=== PATIENT | female | born 1965 | race Caucasian/White ===

== ENCOUNTER → 2022-12-22 14:24 | Outpatient (BNVA) | payer MEDICAID, SELFPAY | PROVIDERS: Visit Provider Surgery | DX: Z12.11 Encounter for screening for malignant neoplasm of colon (principal); Z80.0 Family history of malignant neoplasm of digestive organs; K21.9 Gastro-esophageal reflux disease without esophagitis | CPT/HCPCS: 99024; 99203 ==

== ENCOUNTER → 2023-02-19 10:57 | Outpatient (BNVA) | payer OTHER, SELFPAY | PROVIDERS: Visit Provider Family Medicine | DX: I10 Essential (primary) hypertension (principal); F32.0 Major depressive disorder, single episode, mild; M25.512 Pain in left shoulder | CPT/HCPCS: 80053; 80061; 84439; 84443; 85025 ==

== ENCOUNTER 2023-02-26 07:12 | Day surgery (SDC) | payer OTHER, MEDICAID, SELFPAY ==
[2023-02-01 14:00] VITALS: BMI 25.6
[2023-02-26 07:26] VITALS: PULSE 96; RESP 16; TEMP 36.1; O2SAT 98
--- NOTE | 2023-02-26 07:29 | P.ANESASSM_ITS ---
Pre-Anesthetic Assessment Height/Weight: Height 1.5 m Weight 57.606 kg Preop Diagnosis: GERD, screening Operation Date: 02/26/23 08:30 Proposed Procedures p 51122 EGD [id number] Colonoscopy K21.9,Z12.11(Not Applicable) - Tyrone Moscoso DO s Colonoscopy(Not Applicable) - Tyrone Moscoso DO Familial anesthetic complications: none Was Beta Deanna taken within 24 hours: N/A Was Clonidine taken within 24 hours: N/A Social Tobacco and No alcohol 1 pack(s) per day 44 pack years Exam alert, oriented x 3, clear to auscultation bilaterally and regular rate & rhythm Airway Submandibular: within normal limits Cervical ROM: within normal limits Mallampati: Class I Dentition: false Pulmonary Chronic Obstructive Pulmonary Disease, Exertional Dyspnea and Sleep Apnea CV/HEM Hypertension None reported Hepatic None reported GI Gastroesophageal Reflux Disease (controlled) Metabolic Hyperlipidemia [facility] None reported Neuropsych None reported Anesthetic Plan ASA status: 3 Anesthesia: MAC Risk of > 500 ml blood loss (7ml/kg in children): No Medications/Allergies Home Medications Medication Instructions Recorded Confirmed Last Taken Type pantoprazole 40 mg tablet,delayed 40 mg PO BID 6 weeks #84 tabs 12/22/22 02/26/23 02/25/23 Rx release (Protonix) benazepril 20 mg tablet 20 mg PO DAILY #90 tabs 02/19/23 02/26/23 02/25/23 Rx sertraline 25 mg tablet (Zoloft) 25 mg PO DAILY #30 tabs 02/19/23 02/26/23 02/25/23 Rx acetaminophen 500 mg tablet 500 mg PO Q6H PRN Pain 02/24/23 02/26/23 02/25/23 History Allergies Allergy/AdvReac Type Severity Reaction Status Date / Time No Known Allergies Allergy Verified 02/24/23 09:40 [facility] Anesthesia Medical History (Updated 02/21/23 @ 08:06 by Deondre Coello MD) Family history of colon cancer Surgical History (Updated 12/22/22 @ 15:41 by Tyrone Moscoso DO) Hx of colonoscopy with polypectomy Age 49 Hx of shoulder surgery left shoulder Family History Mother Cancer mass in colon breast cancer, lung cancer, skin cancer Other CAD (coronary artery disease) Social History Smoking and tobacco/nicotine status: current every day tobacco/nicotine user cigarettes Alcohol intake: current Alcohol intake frequency: holidays/special occasions only Data Anesthesia Cardiac Studies: No Data to Display
[2023-02-26] MEDS: sodium chloride 0.9% 1,000 ML 30 ML IV (07:37)
--- NOTE | 2023-02-26 08:15 | P.HP_ITS ---
Providers/Chief Complaint Primary Care Provider: Deondre Coello MD Chief Complaint: K21.9, Z12.11 History of Present Illness Cara Woods is a 57 year old female Review of Systems 2 General: Reports: 10 or more systems reviewed and unremarkable except in HPI and below Medications/Allergies Home Medications Medication Instructions Recorded Confirmed Last Taken Type pantoprazole 40 mg tablet,delayed 40 mg PO BID 6 weeks #84 tabs 12/22/22 02/26/23 02/25/23 Rx release (Protonix) benazepril 20 mg tablet 20 mg PO DAILY #90 tabs 02/19/23 02/26/23 02/25/23 Rx sertraline 25 mg tablet (Zoloft) 25 mg PO DAILY #30 tabs 02/19/23 02/26/23 02/25/23 Rx acetaminophen 500 mg tablet 500 mg PO Q6H PRN Pain 02/24/23 02/26/23 02/25/23 History Allergies Allergy/AdvReac Type Severity Reaction Status Date / Time No Known Allergies Allergy Verified 02/24/23 09:40 PFSH Acute PFSH: Medical History Family history of colon cancer Surgical History Hx of colonoscopy with polypectomy Age 49 Hx of shoulder surgery left shoulder Family History Mother Cancer mass in colon breast cancer, lung cancer, skin cancer Other CAD (coronary artery disease) Social History Smoking and tobacco/nicotine status: current every day tobacco/nicotine user cigarettes Alcohol intake: current Alcohol intake frequency: holidays/special occasions only Vitals/I&O/Wt Last Vital Signs Temp 97 F L 02/26/23 07:26 Pulse 96 02/26/23 07:26 Resp 16 02/26/23 07:26 Pulse Ox 98 02/26/23 07:26 O2 Del Method Room Air 02/26/23 07:26 A&P Assessment and plan (1) GERD (gastroesophageal reflux disease): (2) Colon cancer screening: Plan EGD and colonoscopy Attestations Medical Necessity Statement*: Home Coding Level of Care Code Acute Code for Chg Fwd Diagnoses GERD (gastroesophageal reflux disease) K21.9 Colon cancer screening Z12.11
[2023-02-26 08:51] VITALS: BP 107/70; PULSE 100; RESP 20; TEMP 36.1; O2SAT 100
--- NOTE | 2023-02-26 13:49 | ANE.PACU2 ---
Inpatient post-anesthesia follow up: Airway intact: Yes Vital signs: Temperature 97.0 F Pulse Rate 100 Respiratory Rate 20 Blood Pressure 107/70 Pulse Oximetry 100 Oxygen Delivery Me thod Nasal Cannula Oxygen Flow Rate 4 Fraction of Inspir ed Oxygen Hydration adequate: Yes Nausea and vomiting: No Pain level: 2 Mental status: Baseline
== END 2023-02-26 09:10 | disposition home or self-care (01) ==
PROVIDERS: PCP Family Medicine; Visit Provider Surgery
PROC: 0DJ08ZZ Inspection of Upper Intestinal Tract, Via Natural or Artificial Opening Endoscopic (ICD-10-PCS; CPT 43235; principal; 2023-02-26 08:30)
PROC: 0DJD8ZZ Inspection of Lower Intestinal Tract, Via Natural or Artificial Opening Endoscopic (ICD-10-PCS; CPT 45378; 2023-02-26 08:30)
DX: Z12.11 Encounter for screening for malignant neoplasm of colon (principal); K21.9 Gastro-esophageal reflux disease without esophagitis; Z80.0 Family history of malignant neoplasm of digestive organs; K29.50 Unspecified chronic gastritis without bleeding; F17.210 Nicotine dependence, cigarettes, uncomplicated; K29.80 Duodenitis without bleeding; J44.9 Chronic obstructive pulmonary disease, unspecified; G47.30 Sleep apnea, unspecified; I10 Essential (primary) hypertension
CPT/HCPCS: 43239; 45378; 88305; 88342; J2704; J7030

== ENCOUNTER 2023-06-01 08:43 | Outpatient (CLI) | payer OTHER, MEDICAID, SELFPAY ==
--- NOTE | 2023-06-01 08:49 | MM_ITS ---
WS: [id number] BILATERAL 3D TOMOSYNTHESIS DIGITAL SCREENING MAMMOGRAPHY WITH CAD CLINICAL INFORMATION: screening HISTORY: Screening mammogram. No current complaints. COMPARISON: 2016 TECHNIQUE: Bilateral CC and MLO views. FINDINGS: Scattered fibroglandular densities bilaterally. No suspicious focal mass, asymmetry, calcifications, or architectural distortion. No evidence of malignancy. A few incidental punctate calcifications. IMPRESSION: MM/[place] [id number] BI-RADS: 2-Benign FOLLOW UP: 1 Year Follow-up Recommend return to annual screening mammography.
== END 2023-06-01 08:44 | disposition home or self-care (01) ==
LOC: RAD 08:44
PROVIDERS: PCP Family Medicine; Visit Provider Family Medicine
DX: Z12.31 Encounter for screening mammogram for malignant neoplasm of breast (principal)
CPT/HCPCS: 77063; 77067

== ENCOUNTER 2023-08-20 06:33 | Outpatient (CLI) | payer OTHER, MEDICAID, SELFPAY ==
--- NOTE | 2023-08-20 07:00 | CT_ITS ---
WS: [id number] LDCT LUNG CANCER SCREENING HISTORY: smoking lung [place] screening TECHNIQUE: Axial imaging performed from the apices to 1 cm below the costophrenic angles. Coronal and sagittal reformats are submitted with axial MIP series. All CT scans at [facility] use at least one of these dose optimization techniques: automated exposure control; mA and/or kV adjustment per patient size (includes targeted exams where dose is matched to clinical indication); or iterativ e reconstruction. DLP: 43.32 mGy.cm DIvol: Mean CTDIvol: 0.80 (mGy) COMPARISON: None available. Diagnostic quality: Satisfactory Lungs: Chronic emphysema. Pulmonary hyperinflation. Micronodule LEFT lung base, image 172 series 5. M ild biapical interstitial thickening and tethering. No masses. No endobronchial lesions. Heart: Normal size heart with no pericardial effusion.. Coronary artery atherosclerosis most signific ant in the LAD. Other findings: Mild atherosclerosis aorta. Normal size pulmonary artery. IMPRESSION: CT/CT lung screening [id number] LUNG-RADS: 2-Benign Appearance or Behavior FOLLOW UP: 12 Month: Continue annual screening with LDCT OTHER FINDINGS (S MODIFIER): None.
== END 2023-08-20 06:34 | disposition home or self-care (01) ==
LOC: RAD 06:33
PROVIDERS: PCP Family Medicine; Visit Provider Family Medicine
DX: Z13.83 Encounter for screening for respiratory disorder NEC (principal); J43.9 Emphysema, unspecified; R91.1 Solitary pulmonary nodule; F17.219 Nicotine dependence, cigarettes, with unspecified nicotine-induced disorders
CPT/HCPCS: 71271

== ENCOUNTER 2023-11-29 10:02 | Emergency (ER) | payer OTHER, SELFPAY ==
[2023-11-29 10:50] VITALS: BP 136/83; PULSE 101; RESP 16; TEMP 36.8; O2SAT 97; BMI 26.2
--- NOTE | 2023-11-29 12:24 | W.ED.SKABFB ---
HPI - Skin/Abscess/Foreign Bdy General: Chief complaint: Skin/Abscess/Foreign Body Stated complaint: insect (?) bite, swelling Time Seen by Provider: 11/29/23 12:11 Source: patient Mode of arrival: ambulatory Limitations: no limitations History of Present Illness: 58-year-old female states that she woke up this morning had a slight rash to her left forearm. States has been pruritic in nature she believes she may have gotten a bug bite she denies any shortness of breath denies any fever denies any pain. She denies any improving or worsening factors Associated symptoms: Deny chills, fever(s), nausea or vomiting Review of Systems Const: Denies: fever(s), chills, body aches or change in appetite ENMT: Denies: throat pain or dental pain Card: Denies: chest pain Resp: Denies: dyspnea GI: Denies: abdominal pain, nausea, vomiting or diarrhea Musc: Denies: neck pain or back pain Skin/Breast: Reports: rash Neuro: Denies: headache(s) PFSH ED PFSH: Medical History Family history of colon cancer Surgical History Hx of colonoscopy with polypectomy Age 49 Hx of shoulder surgery left shoulder Family History Mother Cancer mass in colon breast cancer, lung cancer, skin cancer Other CAD (coronary artery disease) Social History Smoking and tobacco/nicotine status: current every day tobacco/nicotine user cigarettes Packs smoked per day: 1 Quit status (tobacco/nicotine): considering quitting Alcohol intake: current Alcohol intake frequency: holidays/special occasions only Substance/Drug Use: never Adopted: No service: No Current occupation: Computer Science Intern Current occupational exposures/hazards: Yes Current gender identity: Female Physical Exam Const: COMMON NORMALS: no acute distress, patient oriented x3 and healthy appearing HENMT: COMMON NORMALS: normocephalic and atraumatic HEAD & SCALP: normocephalic and atraumatic Neck/C-Spine: COMMON NORMALS: full ROM and supple Chest: COMMONS NORMALS: normal inspection of the chest Resp: COMMON NORMALS: normal respiratory effort Cardio: COMMON NORMALS: regular rate RATE: regular rate Extremity: COMMON NORMALS: normal to inspection and full ROM Neuro: COMMON NORMALS: patient oriented x3, moves all extremities and no focal motor deficits Psych: COMMON NORMALS: mental status grossly normal, Normal thought process present and cooperative THOUGHT PROCESS: Normal thought process present Skin: NARRATIVE SKIN EXAM: Slight rash noted to left forearm is pruritic in nature no warmth Course Vital Signs: Vital signs: Vital Signs Temperature 98.2 F 11/29/23 10:50 Pulse Rate 101 H 11/29/23 10:50 Respiratory Rate 16 11/29/23 10:50 Blood Pressure 136/83 11/29/23 10:50 Pulse Oximetry 97 11/29/23 10:50 Oxygen Delivery Me thod Room Air 11/29/23 10:50 MDM - Skin/Abscess/Foreign Bdy Medicial Decision Making Patient presents here with a rash likely an insect bite her white count platelet count were normal she is to take Benadryl at home she is stable for discharge follow-up PCP return if worsening. Medical Records I reviewed the patient's medical records. Lab Data I reviewed the patient's lab results. 11/29/23 12:47 Laboratory Results WBC 7.83 10^3/uL (3.29-11.43) 11/29/23 12:47 RBC 4.36 10^6/uL (3.85-5.65) 11/29/23 12:47 Hgb 11.90 g/dL (11.27-16.99) 11/29/23 12:47 Hct 38.2 % (36-47) 11/29/23 12:47 MCV 87.6 fl (85-98) 11/29/23 12:47 MCH 27.3 pg (27-33) 11/29/23 12:47 MCHC 31.2 g/dL (30-55) 11/29/23 12:47 RDW 14.2 % (12.1-15.1) 11/29/23 12:47 Plt Count 242 10^3/cmm (157-399) 11/29/23 12:47 MPV 11.2 fL (7.4-10.4) H 11/29/23 12:47 Neut % (Auto) 59.6 % 11/29/23 12:47 Lymph % (Auto) 28.7 % 11/29/23 12:47 Irwin % (Auto) 7.2 % 11/29/23 12:47 Eos % (Auto) 3.2 % 11/29/23 12:47 Baso % (Auto) 1.0 % 11/29/23 12:47 Neut # (Auto) 4.67 10^3/uL (1.8-7.7) 11/29/23 12:47 Lymph # (Auto) 2.3 10^3/uL (0.8-4.8) 11/29/23 12:47 Irwin # (Auto) 0.6 10^3/uL (0.2-0.9) 11/29/23 12:47 Eos # (Auto) 0.3 10^3/uL (0.0-0.8) 11/29/23 12:47 Baso # (Auto) 0.1 10^3/uL (0.0-0.1) 11/29/23 12:47 Nucleated RBC % (auto) 0 % 11/29/23 12:47 Nucleated RBCs # 0.0 /100WBC 11/29/23 12:47 No radiology studies performed this visit Discharge Plan Discharge Patient Disposition: Home Clinical Impression: Rash Condition: Stable Prescriptions: No Action pantoprazole [Protonix] 40 mg tablet,delayed release (DR/EC) 40 mg PO DAILY 90 Days Qty: 90 1RF benazepril 20 mg tablet 20 mg PO DAILY Qty: 90 1RF cetirizine [Zyrtec] 10 mg tablet 10 mg PO DAILY PRN (Reason: allergy symptoms) Qty: 30 0RF albuterol sulfate 90 mcg/actuation HFA aerosol inhaler 1 inh inhalation QID PRN (Reason: shortness of breath or wheezing) Qty: 6.7 0RF sertraline 100 mg tablet 100 mg PO DAILY Qty: 30 0RF acetaminophen 500 mg Tablet 500 mg PO Q6H PRN (Reason: Pain) Discharge Orders: Discharge ED (Routine); Ordered 11/29/23 Ordered By: Reina Martinez Referrals: Deondre Coello MD [Primary Care Provider] - 1-3 days Discharge Diet: Advance as tolerated Discharge Activity: Resume usual activity Patient Instructions: Rash - Nonspecific Coding Level of Care Code ED Wind Farm Operations Manager for Helio Duggan
[2023-11-29] MEDS: diphenhydrAMINE 50 mg Capsule PO (12:26)
[2023-11-29 13:18] LABS: Basophils # 0.1 10^3/uL (0.0-0.1); Eosinophils # 0.3 10^3/uL (0.0-0.8); Eosinophils % 3.2 %; Hematocrit 38.2 % (36-47); Lymphocytes # 2.3 10^3/uL (0.8-4.8); Lymphocytes % 28.7 %; Mean Corpuscular HGB Conc 31.2 g/dL (30-55); Mean Corpuscular Hemoglobin 27.3 pg (27-33); Mean Corpuscular Volume 87.6 fl (85-98); Mean Platelet Volume 11.2 fL (7.4-10.4); Monocytes # 0.6 10^3/uL (0.2-0.9); Monocytes % 7.2 %; Neutrophils # 4.67 10^3/uL (1.8-7.7); Neutrophils % 59.6 %; Nucleated Red Blood Cells % 0 %; Platelet Count 242 10^3/cmm (157-399); Red Blood Count 4.36 10^6/uL (3.85-5.65); Red Cell Distribution Width 14.2 % (12.1-15.1); White Blood Count 7.83 10^3/uL (3.29-11.43)
[2023-11-29 13:27] VITALS: BP 113/69; PULSE 93; RESP 16; O2SAT 97
[2023-11-29 13:28] VITALS: BP 113/69; PULSE 93; RESP 16; TEMP 36.8; O2SAT 97
== END 2023-11-29 13:31 | disposition home or self-care (01) ==
PROVIDERS: Emergency Provider Emergency Medicine; PCP Family Medicine
DX: R21 Rash and other nonspecific skin eruption (principal); F17.210 Nicotine dependence, cigarettes, uncomplicated
CPT/HCPCS: 36415; 85025; 99283; Q0163

== ENCOUNTER → 2024-07-25 09:01 | Outpatient (BNVA) | payer OTHER, SELFPAY | PROVIDERS: PCP Family Medicine; Visit Provider Orthopaedic Surgery | DX: S52.502A Unspecified fracture of the lower end of left radius, initial encounter for closed fracture (principal); S52.592A Other fractures of lower end of left radius, initial encounter for closed fracture; W00.0XXA Fall on same level due to ice and snow, initial encounter | CPT/HCPCS: 73110 ==

== ENCOUNTER → 2024-08-15 08:56 | Outpatient (BNVA) | payer OTHER, SELFPAY | PROVIDERS: PCP Family Medicine; Visit Provider Orthopaedic Surgery | DX: S62.102D Fracture of unspecified carpal bone, left wrist, subsequent encounter for fracture with routine healing (principal); X58.XXXD Exposure to other specified factors, subsequent encounter | CPT/HCPCS: 73110 ==

== ENCOUNTER 2024-09-05 13:17 | Outpatient (CLI) | payer OTHER, SELFPAY ==
--- NOTE | 2024-09-05 13:20 | MM_ITS ---
WS: [id number] VIEWS: MLO and CC views both breasts. 3D digital tomosynthesis is also included in this exam. Comparison made with prior exam of 07/03/2015, 06/19/2013, 06/01/2023.. Findings: There are scattered areas of fibroglandular density. No sign of suspicious mass, tumor calcification or architectural distortion. MM/MM scr BI tomosynthesis [id number] Impression: BI-RADS: 2 - Benign FOLLOW-UP: 1 Year Follow-up This mammogram was also analyzed by the Computer Aided Detection System R2 Imag e Hat Liner.
== END 2024-09-05 13:18 | disposition home or self-care (01) ==
PROVIDERS: PCP Family Medicine; Visit Provider Family Medicine
DX: Z12.31 Encounter for screening mammogram for malignant neoplasm of breast (principal); R92.323 Mammographic fibroglandular density, bilateral breasts
CPT/HCPCS: 77063; 77067

== ENCOUNTER → 2024-10-18 09:07 | Outpatient (BNVA) | payer OTHER, SELFPAY | PROVIDERS: PCP Family Medicine; Visit Provider Family Medicine | DX: I10 Essential (primary) hypertension (principal) | CPT/HCPCS: 80053; 80061; 84439; 84443; 85025 ==

== ENCOUNTER 2024-10-31 16:15 | Outpatient (CLI) | payer OTHER, SELFPAY ==
--- NOTE | 2024-10-31 16:15 | CT_ITS ---
WS: [id number] LDCT LUNG CANCER SCREENING HISTORY: screening TECHNIQUE: Axial imaging performed from the apices to 1 cm below the costophrenic angles. Coronal and sagittal reformats are submitted with axial MIP series. All CT scans at [facility] use at least one of these dose optimization techniques: automated exposure control; mA and/or kV adjustment per patient size (includes targeted exams where dose is matched to clinical indication); or iterative reconstruction. DLP: 45.90 mGy.cm DIvol: Mean CTDIvol: 0.90 (mGy) COMPARISON: 08/20/2023 Diagnostic quality: Satisfactory Lungs: Chronic emphysema. Very mild interstitial thickening in the periphery of the upper lung tobias. Scattered benign calcified granulomata. Micronodule LEFT lower lobe is now calcified. No new nodules or increasing size of any nodules. No mass. No endobronchial lesions. Heart: Normal size heart with no pericardial effusion.. Other findings: Mild atherosclerosis aorta. Normal size pulmonary artery. No pathologically enlarged lymph nodes. No adrenal mass. Mild thoracic spondylosis. CT/CT lung screening [id number] IMPRESSION: LUNG-RADS: 2-Benign Appearance or Behavior FOLLOW UP: 12 Month: Continue annual screening with LDCT OTHER FINDINGS (S MODIFIER): None.
== END 2024-10-31 16:16 | disposition home or self-care (01) ==
PROVIDERS: PCP Family Medicine; Visit Provider Family Medicine
DX: Z12.2 Encounter for screening for malignant neoplasm of respiratory organs (principal); F17.219 Nicotine dependence, cigarettes, with unspecified nicotine-induced disorders
CPT/HCPCS: 71271

== ENCOUNTER 2025-04-13 09:56 | Emergency (ER) | payer SELFPAY ==
--- OUTSIDE RECORDS SUMMARY | 2013-10-15 18:00 | XMS_ITS | Continuity of Care Document ---
Author Organization [facility] MD In [facility] Address [address] [place] [address] Phone Care Team Providers Care Hand Paint Mixer Name Role Phone Estefany AWAD, Lele Unavailable Unavai lable Procedures Procedure Date Electrocardiogram (ECG), report only Oct Advance Directives Directive Yes / No Effective Date File Name No Information Encounters Encounter Description Practice Location Reason(s) For Visit Diagnoses Date Provider Providers Copied on Encounter [facility], [address], [place], [address], tel:[phone] [facility] No Information Estefany Royal . [address] [place], [place], [id number]. tel:[phone] Referring Provider: Nahid Gaona, [address] [place], [address]. tel:[phone] Family History Family Member Type Diagnosis Age At Onset No Information Payers Payer name Insurance type Covered constitution party ID Authoriza tijacobo(s) [facility] [id number] Social History Type Description Quantity Date Captured Comments Sex Female Smoking Status No Information Chief Complaint And Reason For Visit No Information Reason For Referral Reason For Referral No Information History Of Present Illness Encounter Date Complaint History Of Prese nt Illness No Information Functional Status Date Functional Assessmen t No Information Instructions Date Instruction Additional Infor mation No Information Assessments Type Assessment Date No Information Patient Care Teams Name Effective Dates (start - stop) Status Members No Information
--- OUTSIDE RECORDS SUMMARY | 2025-04-13 10:00 | XMS_ITS | Continuity of Care Document ---
Author Name Zandra Smart Address [address] [place] [id number] Organization Unknown Address [address] [place] [id number] Medications No known medications Problems * Encounter for gynecological examination (general) (routine) without abnormal findings on: 2022-03-12
[2025-04-13 10:12] VITALS: BP 162/91; PULSE 101; RESP 18; TEMP 36.7; O2SAT 98; BMI 26.6
--- NOTE | 2025-04-13 10:13 | W.ED.ANIMALB ---
HPI - Animal Bite General: Chief Complaint: Animal Bite Stated Complaint: Dog Bite L leg Time Seen by Provider: 04/13/25 10:13 Source: patient Mode of arrival: ambulatory Limitations: no limitations History of Present Illness: Patient is a nice 59-year-old female presents to ED today with a complaint of a dog bite to the posterior aspect of her left lower leg that she sustained yesterday. She states the animal was her friend's dog and is just naturally aggressive. She is not sure if the dog is up-to-date on rabies immunizations but can ask her friend. She states the dog can be quarantined. She states her tetanus is not up-to-date. She feels like the dog bite feels sore has not noticed any swelling, redness, or discharge. complaint: animal bite Onset (ago): day(s) (yesterday) Animal: dog Description of animal: appeared well Mechanism: bite Location - Extremities: Left: lower leg Context: provoked Associated symptoms: Reports no associated symptoms; Deny chills or fever(s) Related Data Home Medications ?Medication ?Instructions ?Recorded ?Confirmed acetaminophen 500 mg tablet 500 mg PO Q6H PRN Pain 02/24/23 10/18/24 Previous Rx's ?Medication ?Instructions ?Recorded albuterol sulfate 90 mcg/actuation 1 inh inhalation QID PRN shortness 08/18/23 aerosol inhaler of breath or wheezing #6.7 grams benazepril 20 mg tablet 20 mg PO DAILY #90 tabs 10/18/24 omeprazole 20 mg capsule,delayed 20 mg PO DAILY #90 caps 10/18/24 release ibuprofen 800 mg tablet 800 mg PO Q8H PRN pain (scale 11/20/24 score 7-10) #15 tabs amoxicillin 875 mg-potassium 1 tab PO BID #14 tabs 04/13/25 clavulanate 125 mg tablet Allergies Allergy/AdvReac Type Severity Reaction Status Date / Time No Known Allergies Allergy Verified 07/25/24 09:18 Review of Systems Const: Denies: fever(s), chills, body aches, fatigue or malaise Card: Denies: chest pain Resp: Denies: dyspnea GI: Denies: abdominal pain, nausea or vomiting Musc: Reports: extremity pain (L LE at site of dog bite); Denies: neck pain, back pain, extremity swelling or joint pain Skin/Breast: Reports: other (dog bite L lower leg) Neuro: Denies: numbness in extremities, weakness in extremities, sensory changes or difficulty walking PFSH ED PFSH: Medical History Family history of colon cancer Surgical History Hx of colonoscopy with polypectomy Age 49 Hx of shoulder surgery left shoulder Family History Mother Cancer mass in colon breast cancer, lung cancer, skin cancer Other CAD (coronary artery disease) Social History Smoking and tobacco/nicotine status: current every day tobacco/nicotine user cigarettes Packs smoked per day: 1 Quit status (tobacco/nicotine): considering quitting Alcohol intake: current Alcohol intake frequency: holidays/special occasions only Substance/Drug Use: never Adopted: No service: No Current occupation: Armament Repairer Current occupational exposures/hazards: Yes Current gender identity: Female Physical Exam Const: COMMON NORMALS: no acute distress, average body habitus, no limitations, healthy appearing, alert and well nourished Extremity: COMMON NORMALS: no clubbing, cyanosis or edema and no pedal edema GENERAL: Yes normal exam except as noted LEFT LOWER EXTREMITY: Yes lower leg (small dog bite L calf-no edema, redness, streaking, discharge) Left lower leg: Yes neurovascular exam (normal) Neuro: COMMON NORMALS: moves all extremities, no focal motor deficits, no sensory deficits noted and gait normal SENSORIUM/ORIENTATION: Yes alert Course Vital Signs: Vital signs: Vital Signs Temperature 98.1 F 04/13/25 10:12 Pulse Rate 101 H 04/13/25 10:12 Respiratory Rate 18 04/13/25 10:12 Blood Pressure 162/91 04/13/25 10:12 Pulse Oximetry 98 04/13/25 10:12 Oxygen Delivery Me thod Room Air 04/13/25 10:12 MDM - Animal Bite Medical Decision Making Patient will be placed on prophylactic antibiotics. Her tetanus will be updated. She is certain the animal can be quarantined thus we do not need to start rabies PEP today. Return precautions discussed. Differential Diagnosis Likely bite by animal and dog bite Medical Records I reviewed the patient's medical records. No radiology studies performed this visit Discharge Plan Discharge Patient Disposition: Home Clinical Impression: Dog bite Qualifiers: Encounter type: initial encounter Qualified Code(s): W54.0XXA - Bitten by dog, initial encounter Condition: Stable Prescriptions: New amoxicillin-pot clavulanate 875-125 mg tablet 1 tab PO BID Qty: 14 0RF No Action omeprazole 20 mg capsule,delayed release(DR/EC) 20 mg PO DAILY Qty: 90 1RF benazepril 20 mg tablet 20 mg PO DAILY Qty: 90 1RF albuterol sulfate 90 mcg/actuation HFA aerosol inhaler 1 inh inhalation QID PRN (Reason: shortness of breath or wheezing) Qty: 6.7 0RF ibuprofen 800 mg tablet 800 mg PO Q8H PRN (Reason: pain (scale score 7-10)) Qty: 15 0RF acetaminophen 500 mg Tablet 500 mg PO Q6H PRN (Reason: Pain) Discharge Orders: Discharge ED (Routine); Ordered 04/13/25 Ordered By: Priti Saldaña Referrals: Deondre Coello MD [Primary Care Provider, [facility]] Patient Instructions: Animal Bite (ED), Patient Portal & Angeli Instructions Activity Restrictions/Additional Instructions: Monitor for signs of infection such as redness, worsening pain, swelling, streaking up your leg, fevers, or any other concerns you may have. Please seek medical reevaluation if these occur. Please fill your antibiotics and start them immediately. Tetanus has been updated today. Recommend quarantining the animal over the next 10 days to monitor for mental status change. If any change occurs, the animal will need to be evaluated by a vet and you will need to start rabies postexposure prophylaxis. Print Language: Icelandic Coding Level of Care Code ED Ground Instructor Advanced for Helio Duggan
[2025-04-13] MEDS: tetanus-dipt-pertussis 0.5 mL SDV IM (10:23)
== END 2025-04-13 10:37 | disposition home or self-care (01) ==
PROVIDERS: Emergency Provider Physician Assistant; PCP Family Medicine
DX: S81.852A Open bite, left lower leg, initial encounter (principal); W54.0XXA Bitten by dog, initial encounter
CPT/HCPCS: 90471; 90715; 99283